=== PATIENT | female | born 1970 | race Two or more races ===

== ENCOUNTER 2022-06-26 07:38 | Day surgery (SDC) | payer BC ==
[2022-06-26] VITALS (9 sets, daily range): BP systolic 126–144; BP diastolic 76–86
[~2022-06-26] VITALS: Ht 165.1 cm; Wt 92.1 kg
[2022-06-26] MEDS ORDERED: IODIXANOL 320MG/ML 100ML BTL IV ONE (08:09)
[2022-06-26] MEDS ORDERED: METO25TA93 PO (08:18)
[2022-06-26] MEDS ORDERED: GABA300C10 PO (08:18)
[2022-06-26] MEDS ORDERED: SIMV-13 PO (08:18)
[2022-06-26] MEDS ORDERED: METF-370 PO (08:18)
[2022-06-26] MEDS ORDERED: PENI500T2 PO (08:18)
[2022-06-26] MEDS ORDERED: MAGN400T40 OR (08:18)
[2022-06-26] MEDS ORDERED: fentaNYL CITRATE 100 MCG/2 ML VL ONE (08:23)
[2022-06-26] MEDS ORDERED: MIDAZOLAM HCL 2MG/2ML 2ml VIAL (1mg/ml) ONE (08:23)
[2022-06-26] MEDS ORDERED: ANGIOMAX 250 MG VIAL IV ONE (08:23)
[2022-06-26] MEDS ORDERED: SODIUM CHL 0.9% 0 ML ONE (08:24)
[2022-06-26] MEDS ORDERED: VERAPAMIL 2.5MG/ML INJ 2ML VIAL IV ONE (08:24)
[2022-06-26] MEDS ORDERED: HEPARIN SODIUM (PORCINE) 5000 UNITS/ML 1ML VIAL ONE (08:24)
[2022-06-26] MEDS ORDERED: LIDOCAINE 2%HCL (LOCAL ANESTH.) INJ 10ml MDV ONE (08:25)
== END 2022-06-26 11:26 | disposition home or self-care (01) ==
LOC: EDBD → CATH 07:38
PROVIDERS: ATTEND Internal Medicine Cardiovascular Disease
DX: R94.39 Abnormal result of other cardiovascular function study (principal); R07.89 Other chest pain; I10 Essential (primary) hypertension; E78.5 Hyperlipidemia, unspecified; E66.9 Obesity, unspecified; E11.9 Type 2 diabetes mellitus without complications; Z20.822 Contact with and (suspected) exposure to COVID-19
CPT/HCPCS: 93458; J1644; J2001; J2250; J3010; Q9967; U0003